=== PATIENT | male | born 1960 | race Caucasian/White ===

== ENCOUNTER 2018-08-08 12:54 | Emergency (ER) | payer MEDICARE, OTHER ==
--- NOTE | 2018-08-08 13:05 | ED.PDOC ---
History of Present Illness - General Stated Complaint: fall on wet floor Time Seen by Provider: 08/08/18 13:01 Source: patient, Vital Signs reviewed Additional Information: 57 YEAR OLD FELL AFTER HE SLIPPED ON WET MUDDY GROUND ON TO THE LEFT SIDE HE INJURED THE LEFT ELBOW AND STATES HE CAN FEEL THE BONES MOVE HE HAS BEEN DEALING WITH LEFT FOREARM OSTEOMYELITIS THAT HAD LEFT HIM WITH SHORTENING OF THE LEFT FOREARM WITH A DYNAMIC BRACE HE DOES NTO WANT ANYTHING FOR PAIN HE APPEARS UNCOMFORTABLE BUT AWAKE ALERT NO HEAD NECK CHEST OR BACK OR ABDOMINAL COMPLAINTS - History of Present Illness Occurred: just prior to arrival Severity: moderate Injuries/Pain Location: upper extremity Reason for Fall: slipped Improving Factors: immobilization Worsening Factors: movement Associated Symptoms (Fall): denies symptoms Allergies/Adverse Reactions: Allergies NO KNOWN ALLERGY Allergy (Verified 08/08/18 13:16) Home Medications: Ambulatory Orders Atorvastatin Calcium 08/08/18 Metformin HCl 08/08/18 Synthroid 08/08/18 Review of Systems - Review of Systems Constitutional: States: no symptoms reported EENTM: States: no symptoms reported Respiratory: States: no symptoms reported Cardiology: States: no symptoms reported Gastrointestinal/Abdominal: States: no symptoms reported Genitourinary: States: no symptoms reported Musculoskeletal: States: no symptoms reported Skin: States: no symptoms reported Neurological: States: no symptoms reported Endocrine: States: no symptoms reported Hematologic/Lymphatic: States: no symptoms reported Physical Exam - Physical Exam General Appearance: Alert, Comfortable Eye Exam: bilateral normal ENT Exam: hearing grossly normal, no evidence of ENT injury, no dental injury Peripheral Pulses: radial,right: 2+, radial,left: 2+, femoral,right: 2+ Cardiovascular/Respiratory: regular rate, rhythm, no M/R/G, normal peripheral pulses, no JVD, normal breath sounds, no respiratory distress Back Exam: normal inspection, no CVA tenderness, no vertebral tenderness Extremity Exam: other - LEFT ARM IS IN A BRACE THERE IS TENDERNESS ON THE LEFT ELBOW NO NEURO VASCULAR DEFICIT 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, no motor/sensory deficits, alert, normal mood/affect, oriented x 3 Progress - Results/Orders Results/Orders: X RAY REVIEWED HE HAS COMMUNITTED CLOSED SUPRA CONDYLAR FRACTURE OF THE LEFT ELBOW HE ALSO HAS NON UNION OF AN OLD OPEN FRACTURE OF THE DISTAL SHAFT OF BOTH ULNA AND RADIUS PT WANTS TO BE DISCHARGED AND HIS FAMILY WANTS TO TAKE HIM TO [facility] IN [place] Departure - Departure Clinical Impression: Supracondylar fracture of humerus Time of Disposition: 13:49 Disposition: Discharge to Home or Self Care Condition: Good Activity: walking as tolerated Home Medications: Ambulatory Orders Atorvastatin Calcium 08/08/18 Metformin HCl 08/08/18 Synthroid 08/08/18
[2018-08-08 13:14] VITALS: BP 153/89; TEMP 97.6; O2SAT 99
[2018-08-08] MEDS ORDERED: PROMETHAZINE HCL INJ 25 MG/ML VIAL IM ONE ×2 (13:16→13:17)
[2018-08-08] MEDS ORDERED: MORPHINE SULFATE INJ 10 MG/ML VIAL IM ONE ×2 (13:16)
--- NOTE | 2018-08-08 13:40 | RAD ---
EXAM DESCRIPTION: Elbow,Left 2 Views CLINICAL HISTORY: fall COMPARISON: None. IMPRESSION: 2 views of the left elbow show a comminuted fracture of the distal humerus with horizontal and vertical components. There is volar and proximal displacement of the distal fracture fragments as well as moderate medial displacement of the medial epicondyle. 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 Multiple radiopaque densities are seen probably overlying the skin posterior to the elbow. Osseous structures are diffusely osteopenic. Electronically signed by: Noble Brizuela MD 08/08/2018 1:39 PM CDT
== END 2018-08-08 14:05 | disposition home or self-care (01) ==
LOC: ER 12:54
DX: S42.422A Displaced comminuted supracondylar fracture without intercondylar fracture of left humerus, initial encounter for closed fracture (principal); Z79.899 Other long term (current) drug therapy; W01.0XXA Fall on same level from slipping, tripping and stumbling without subsequent striking against object, initial encounter; Z87.891 Personal history of nicotine dependence; Y92.89 Other specified places as the place of occurrence of the external cause
CPT/HCPCS: 73070; J2270; J2550